=== PATIENT | female | born 1940 | race Caucasian/White ===

== ENCOUNTER 2017-02-16 21:31 | Inpatient (IN) ==
[2017-02-16 22:24] LABS: MANUAL DIFF NEEDED? NO
[2017-02-16 22:25] LABS: BASO% 0.3 % (0.0-0.8); EOS# 0.03 X1000 (0.0-0.7); EOS% 0.8 % (0.0-10.0); HEMATOCRIT 40.1 % (37.0-47.0); HEMOGLOBIN 14.3 g/dL (12.0-16.0); MCH 32.3 PG (27-31); MCHC 35.7 g/dL (33-37); MCV 90.5 FL (81-99); MONO# 0.57 X1000 (0.11-0.59); MONO% 15.7 % (1.7-9.3); MPV 9.4 FL (7.4-10.4); NEUT% 61.2 % (42.2-75.2); PLT 281 X1000 (130-400); RBC 4.43 XMIL (4.2-5.4)
[2017-02-16 22:48] LABS: URINE CULTURE NEEDED? NO; URINE MICRO REVIEW NEEDED? NO; URINE SOURCE CLEAN CATCH
[2017-02-16 22:53] LABS: UR EPITHELIAL CELLS <10 /HPF (<10); URINE BACTERIA NEGATIVE /HPF; URINE RBC <10 /HPF (<10); URINE WBC <10 /HPF (<10)
[2017-02-16 22:55] LABS: BILIRUBIN URINE NEGATIVE (NEGATIVE); BLOOD URINE NEGATIVE (NEGATIVE); COLOR YELLOW; GLUCOSE URINE NEGATIVE (NEGATIVE); LEUKOCYTES URINE NEGATIVE (NEGATIVE); NITRITE URINE NEGATIVE (NEGATIVE); PROTEIN URINE 30 mg/dL (NEGATIVE); SP GRAVITY URINE 1.022; TURBIDITY URINE CLEAR (CLEAR); UROBILINOGEN URINE NORMAL (NORMAL)
[2017-02-16 22:59] LABS: AGAP 13; ALBUMIN 4.7 g/dL (3.5-5.0); ALKALINE PHOSPHATASE 69 U/L (32-104); AMYLASE 39 U/L (20-200); BUN 7 mg/dL (8-22); CALCIUM 9.3 mg/dL (8.8-10.2); CHLORIDE 78 mmol/L (98-107); COSMO 238; GOT 16 U/L (10-30); GPT 9 U/L (10-36); LIPASE 15 U/L (13-60); SODIUM 118 mmol/L (136-145); TCO2 27 mmol/L (25-35); TOTAL BILIRUBIN 0.43 mg/dL (0.20-1.00); TOTAL PROTEIN 7.4 g/dL (6.3-8.3)
[2017-02-16] MEDS ORDERED: NS + KCL 20 MEQ 1,000 ML IV ONE (23:16)
[2017-02-17] MEDS ORDERED: ZOFRAN IV ONE (00:24)
[2017-02-17] MEDS ORDERED: APRESOLINE IV PRN (00:49)
[2017-02-17] MEDS ORDERED: TYLENOL PO PRN (00:49)
[2017-02-17] MEDS ORDERED: NS 1,000 ML IV ONE (00:49)
[2017-02-17] MEDS ORDERED: SODIUM CHLORIDE 0.9% INJ SCH (01:00)
[2017-02-17] MEDS: PROTONIX IV SCH (01:21)
[2017-02-17] MEDS: FLAGYL 500 MG/NS 500 MG/100 ML IVPB IV SCH ×4 (01:39→17:58)
[2017-02-17] MEDS: POTASSIUM CHLORIDE 20 MEQ/SWI 20 MEQ/100 ML IVPB IV SCH ×2 (02:28→04:47)
[2017-02-17] MEDS: CIPRO 400 MG/D5W 400 MG/200 ML IVPB IV SCH ×2 (02:35→14:43)
[2017-02-17] MEDS: ZOFRAN IV PRN ×3 (02:46→11:45)
[2017-02-17] MEDS: COMPAZINE IV PRN ×2 (04:07→15:26)
[2017-02-17 07:32] LABS: HEMATOCRIT 36.7 % (37.0-47.0); MCH 32.8 PG (27-31); MCHC 35.4 g/dL (33-37); MCV 92.7 FL (81-99); MPV 9.8 FL (7.4-10.4); RBC 3.96 XMIL (4.2-5.4)
[2017-02-17 07:34] LABS: AGAP 17; BUN 5 mg/dL (8-22); CALCIUM 8.1 mg/dL (8.8-10.2); CHLORIDE 83 mmol/L (98-107); COSMO 245; POTASSIUM 4.1 mmol/L (3.5-5.1); SODIUM 122 mmol/L (136-145); TCO2 22 mmol/L (25-35)
[2017-02-17] MEDS: ROCALTROL PO SCH (09:33)
[2017-02-17] MEDS: TESSALON PO PRN (14:43)
[2017-02-17] MEDS ORDERED: PROTONIX IV SCH (15:30)
[2017-02-17] MEDS ORDERED: COMPAZINE IV PRN (16:11)
--- NOTE | 2017-02-17 16:58 | Diag Imaging Result Doc PS360 ---
CT HEAD W/O CONTRAST - 02/17/2017 INDICATION: hyponatremia TECHNIQUE: A CT dose reduction protocol was used. COMPARISON: None FINDINGS: There is appearance of possible mass at the superior right frontal lobe. This area is not well delineated however. Otherwise, there is moderate diffuse atrophy and mild periventricular white matter chronic microvascular disease. No hemorrhage. The skull is intact. The sinuses are clear. IMPRESSION: 1. Possible mass in the right frontal lobe. Recommend further evaluation with a CT or MRI with intravenous contrast. 2. Other chronic changes as described above. Electronically signed by Mendoza Wilson 02/17/2017 4:55 PM
--- NOTE | 2017-02-17 17:08 | Diag Imaging Result Doc PS360 ---
CT ABD/PELVIS W/ IV CONT ONLY - 02/17/2017 INDICATION: gi bleed TECHNIQUE: A CT dose reduction protocol was used. COMPARISON: None FINDINGS: There is a large hiatal hernia. There is some fibrosis or infiltrate in the left lower lobe. Heart size is borderline. There are cholecystectomy clips. The liver, pancreas, adrenals, and kidneys are normal. There are a couple of small fat-containing ventral hernias. There is extremely severe diverticulosis all throughout the colon. No bowel obstruction or inflammation. Normal appendix. There is vascular disease of the aorta but no aneurysm or significant stenosis. There is mild enlargement of the endometrial canal which measures up to 11 x 8 mm. Urinary bladder and rectum are normal. There are moderate degenerative changes of the spine. No acute or suspicious bony lesion. IMPRESSION: 1. Large hiatal hernia. 2. Small fat-containing ventral hernias. 3. Severe diverticulosis coli. 4. Mild enlargement of the endometrial canal which may suggest hyperplasia. Follow-up pelvic ultrasound recommended. Electronically signed by Mendoza Wilson 02/17/2017 5:06 PM
[2017-02-17 17:43] LABS: UR CREAT RANDOM 16.8 mg/dL (11-20)
[2017-02-17] MEDS: NS 1,000 ML IV SCH (17:51)
[2017-02-17] MEDS: KEPPRA 500 MG in NS 100 ML IV SCH (22:05)
[2017-02-17] MEDS: SINGULAIR PO SCH (22:06)
[2017-02-18] MEDS: PROTONIX IV SCH (02:15)
[2017-02-18] MEDS: FLAGYL 500 MG/NS 500 MG/100 ML IVPB IV SCH ×3 (02:16→14:02)
[2017-02-18] MEDS: CIPRO 400 MG/D5W 400 MG/200 ML IVPB IV SCH ×2 (04:07→15:05)
--- NOTE | 2017-02-18 05:48 | EKG Report ---
Test Performed on : 02/17/2017 00:05:01 AM Test Reason : ABNORMAL LABS Blood Pressure : / mmHG Vent. Rate : 072 BPM Atrial Rate : 072 BPM P-R Int : 164 ms QRS Dur : 084 ms QT Int : 426 ms P-R-T Axes : 032 026 007 degrees QTc Int : 466 ms Normal sinus rhythm. Normal ECG When compared with ECG of 06-FEB-2009 18:03, No significant change was found Unconfirmed Result
[2017-02-18] MEDS: NS 1,000 ML IV SCH ×2 (06:15→13:11)
[2017-02-18 06:50] LABS: MANUAL DIFF NEEDED? NO
[2017-02-18 07:06] LABS: BASO% 0.2 % (0.0-0.8); EOS# 0.03 X1000 (0.0-0.7); EOS% 0.5 % (0.0-10.0); HEMATOCRIT 35.9 % (37.0-47.0); HEMOGLOBIN 12.5 g/dL (12.0-16.0); IMM GRAN# 0.02 X1000 (0.0-0.04); IMM GRAN% 0.3 % (0.0-0.5); LYMPH# 1.07 X1000 (1.2-3.4); LYMPH% 16.1 % (20.5-51.1); MCHC 34.8 g/dL (33-37); MCV 91.8 FL (81-99); MONO# 1.07 X1000 (0.11-0.59); MONO% 16.1 % (1.7-9.3); MPV 9.3 FL (7.4-10.4); NEUT% 66.8 % (42.2-75.2); PLT 250 X1000 (130-400); RBC 3.91 XMIL (4.2-5.4)
[2017-02-18 07:47] LABS: AGAP 13; BUN 4 mg/dL (8-22); CALCIUM 7.9 mg/dL (8.8-10.2); CHLORIDE 88 mmol/L (98-107); COSMO 249; POTASSIUM 3.3 mmol/L (3.5-5.1); SODIUM 125 mmol/L (136-145); TCO2 24 mmol/L (25-35)
[2017-02-18] MEDS ORDERED: KLOR-CON PO ONE (07:57)
--- NOTE | 2017-02-18 09:07 | Diag Imaging Result Doc PS360 ---
EXAM: MRI BRAIN W W/O CONTRAST HISTORY: BRAIN MASS TECHNIQUE: MRI brain with and without contrast. Axial, sagittal, and coronal images obtained in multiple sequences. These are followed the post contrasted axial and coronal images. COMPARISON: A CT from 02/17/2017 FINDINGS: No recent infarct. There are mild to moderate microvascular ischemic changes. There is no mass or midline shift. Specifically there is no mass in the right frontal lobe. No enhancing lesion on the post contrasted images. There is diffuse atrophy. Mild ventricular prominence. No epidural or subdural fluid collection. IMPRESSION: 1.No mass 2.Atrophy with chronic microvascular ischemic changes Electronically signed by Deep Cuellar 02/18/2017 9:05 AM
[2017-02-18] MEDS: KEPPRA 500 MG in NS 100 ML IV SCH ×3 (09:24→21:31)
[2017-02-18] MEDS ORDERED: DULCOLAX PO ONE ×2 (16:34→22:00)
[2017-02-18] MEDS ORDERED: MIRALAX PO ONE (16:34)
[2017-02-18] MEDS: ZOSYN 3.375 GM in NS 50 ML IV SCH ×2 (17:45→23:43)
--- NOTE | 2017-02-18 19:09 | Diag Imaging Result Doc PS360 ---
EXAM: CHEST-2 VIEWS HISTORY: Cough TECHNIQUE: Two views COMPARISON: 07/29/2015 FINDINGS: The lungs are well expanded. The heart is not enlarged. The vessels are not distended. There are no infiltrates. No pleural effusions. There is a moderate sized hiatal hernia. IMPRESSION: No pneumonia. Electronically signed by Deep Cuellar 02/18/2017 7:07 PM
[2017-02-18] MEDS: SINGULAIR PO SCH (21:30)
[2017-02-18] MEDS ORDERED: ZOSYN ONE (23:41)
[2017-02-19] MEDS: PROTONIX IV SCH (03:10)
[2017-02-19] MEDS: NS 1,000 ML IV SCH ×3 (03:10→17:29)
[2017-02-19] MEDS: ZOSYN 3.375 GM in NS 50 ML IV SCH ×3 (05:00→17:19)
[2017-02-19 06:24] LABS: BASO% 0.2 % (0.0-0.8); EOS% 3.6 % (0.0-10.0); HEMATOCRIT 37.1 % (37.0-47.0); HEMOGLOBIN 12.7 g/dL (12.0-16.0); IMM GRAN# 0.02 X1000 (0.0-0.04); IMM GRAN% 0.4 % (0.0-0.5); LYMPH% 25.3 % (20.5-51.1); MANUAL DIFF NEEDED? YES; MCH 31.8 PG (27-31); MCHC 34.2 g/dL (33-37); MONO% 14.5 % (1.7-9.3); MPV 9.6 FL (7.4-10.4); PLT 243 X1000 (130-400); RBC 3.99 XMIL (4.2-5.4)
[2017-02-19 06:34] LABS: AGAP 15; BUN 3 mg/dL (8-22); CALCIUM 8.3 mg/dL (8.8-10.2); CHLORIDE 93 mmol/L (98-107); COSMO 261; POTASSIUM 3.6 mmol/L (3.5-5.1); SODIUM 132 mmol/L (136-145); TCO2 24 mmol/L (25-35)
[2017-02-19 06:53] LABS: BANDS 4 % (0-1); LYMPHS 28 % (21-51); MONO 16 % (1-9)
[2017-02-19] MEDS: TESSALON PO PRN (08:39)
[2017-02-19] MEDS: KEPPRA 500 MG in NS 100 ML IV SCH ×2 (10:44→21:03)
[2017-02-19] MEDS: DUONEB (A & A) INH SCH ×4 (11:08→23:21)
[2017-02-19] MEDS: CLARITIN PO SCH (12:25)
[2017-02-19] MEDS: SINGULAIR PO SCH (20:54)
[2017-02-19] MEDS: HYZAAR 50/12.5 MG PO SCH (20:54)
[2017-02-20] MEDS: ZOSYN 3.375 GM in NS 50 ML IV SCH ×4 (00:06→17:07)
[2017-02-20] MEDS: PROTONIX IV SCH (01:00)
[2017-02-20] MEDS: DUONEB (A & A) INH SCH ×6 (03:37→22:35)
[2017-02-20 06:27] LABS: AGAP 11; BUN 3 mg/dL (8-22); CHLORIDE 93 mmol/L (98-107); COSMO 259; POTASSIUM 2.6 mmol/L (3.5-5.1); SODIUM 130 mmol/L (136-145); TCO2 26 mmol/L (25-35)
[2017-02-20] MEDS ORDERED: KLOR-CON PO ONE ×2 (07:55→15:48)
[2017-02-20] MEDS: ROCALTROL PO SCH (08:33)
[2017-02-20] MEDS: CLARITIN PO SCH (08:34)
[2017-02-20] MEDS: NS 1,000 ML IV SCH (10:22)
[2017-02-20] MEDS: KEPPRA 500 MG in NS 100 ML IV SCH ×2 (10:40→21:32)
[2017-02-20] MEDS ORDERED: MIRALAX PO ONE (16:00)
[2017-02-20] MEDS ORDERED: DULCOLAX PO ONE (17:00)
[2017-02-20] MEDS ORDERED: FLEET ENEMA PR ONE (21:17)
[2017-02-20] MEDS ORDERED: POTASSIUM CHLORIDE 20 MEQ/SWI 20 MEQ/100 ML IVPB IV ONE (21:17)
[2017-02-20] MEDS: HYZAAR 50/12.5 MG PO SCH (21:31)
[2017-02-20] MEDS: SINGULAIR PO SCH (21:31)
[2017-02-21 00:31] LABS: AGAP 18; BUN 2 mg/dL (8-22); CALCIUM 9.1 mg/dL (8.8-10.2); CHLORIDE 91 mmol/L (98-107); COSMO 256; POTASSIUM 3.8 mmol/L (3.5-5.1); SODIUM 129 mmol/L (136-145); TCO2 20 mmol/L (25-35)
[2017-02-21] MEDS: ZOSYN 3.375 GM in NS 50 ML IV SCH ×5 (01:08→23:05)
[2017-02-21] MEDS: DUONEB (A & A) INH SCH ×6 (03:29→22:32)
[2017-02-21] MEDS: PROTONIX IV SCH ×2 (03:38→22:55)
[2017-02-21] MEDS: NS 1,000 ML IV SCH ×4 (03:39→22:56)
[2017-02-21 06:36] LABS: MANUAL DIFF NEEDED? NO
[2017-02-21 06:43] LABS: BASO% 0.4 % (0.0-0.8); EOS# 0.19 X1000 (0.0-0.7); EOS% 2.7 % (0.0-10.0); HEMATOCRIT 37.9 % (37.0-47.0); HEMOGLOBIN 12.9 g/dL (12.0-16.0); IMM GRAN# 0.03 X1000 (0.0-0.04); IMM GRAN% 0.4 % (0.0-0.5); MCH 32.2 PG (27-31); MCV 94.5 FL (81-99); MONO# 0.86 X1000 (0.11-0.59); MONO% 12.3 % (1.7-9.3); MPV 9.3 FL (7.4-10.4); NEUT% 64.2 % (42.2-75.2); PLT 273 X1000 (130-400); RBC 4.01 XMIL (4.2-5.4)
[2017-02-21 07:16] LABS: AGAP 15; BUN 2 mg/dL (8-22); CALCIUM 8.9 mg/dL (8.8-10.2); CHLORIDE 97 mmol/L (98-107); COSMO 264; POTASSIUM 3.6 mmol/L (3.5-5.1); SODIUM 134 mmol/L (136-145); TCO2 22 mmol/L (25-35)
[2017-02-21] MEDS: CLARITIN PO SCH (08:16)
[2017-02-21] MEDS: KEPPRA 500 MG in NS 100 ML IV SCH ×2 (09:02→22:48)
[2017-02-21] MEDS ORDERED: DIPRIVAN 1% ONE (14:02)
[2017-02-21] MEDS ORDERED: XYLOCAINE-MPF 2% ONE (14:06)
[2017-02-21] MEDS ORDERED: FENTANYL ONE (14:06)
[2017-02-21] MEDS: SINGULAIR PO SCH (22:47)
[2017-02-21] MEDS: HYZAAR 50/12.5 MG PO SCH (22:47)
[2017-02-21] MEDS: SODIUM CHLORIDE 0.9% INJ SCH (22:55)
[2017-02-22] MEDS: DUONEB (A & A) INH SCH ×6 (03:42→23:18)
[2017-02-22] MEDS: ZOSYN 3.375 GM in NS 50 ML IV SCH ×3 (05:30→17:11)
[2017-02-22] MEDS: SODIUM CHLORIDE 0.9% INJ SCH ×2 (08:53→23:57)
[2017-02-22] MEDS: PROTONIX IV SCH ×2 (08:53→23:57)
[2017-02-22] MEDS: CLARITIN PO SCH (08:53)
[2017-02-22] MEDS: KEPPRA 500 MG in NS 100 ML IV SCH (09:20)
--- NOTE | 2017-02-22 12:44 | Diag Imaging Result Doc PS360 ---
EXAM: GI/SW/SM BOWEL HISTORY: poss gastropexy, poss SBO, n/v, abd pain, diarrhea TECHNIQUE: 17 films taken. Total dose is 2119 cGy square centimeter. Fluoroscopy time is one minute 58 seconds. COMPARISON: None. FINDINGS: Initial swallowing showed delayed relaxation at the gastroesophageal junction. No esophageal stricture or evidence of esophagitis. There apparently has been an intrathoracic fundoplication. There is quick emptying from the stomach into the duodenum. No definite gastric abnormality. There is normal passage of barium through the small bowel into the colon. No mucosal abnormality. No small bowel mass or stricture. Normal terminal ileum and appendix. IMPRESSION: Intrathoracic fundoplication with delayed emptying from the esophagus into the stomach with an appearance resembling achalasia. Electronically signed by Deep Cuellar 02/22/2017 12:41 PM
[2017-02-22] MEDS: NS 1,000 ML IV SCH (13:07)
[2017-02-22] MEDS: TESSALON PO PRN (23:57)
[2017-02-22] MEDS: HYZAAR 50/12.5 MG PO SCH (23:57)
[2017-02-22] MEDS: SINGULAIR PO SCH (23:59)
[2017-02-23] MEDS: KEPPRA 500 MG in NS 100 ML IV SCH (00:01)
[2017-02-23] MEDS: NS 1,000 ML IV SCH (01:34)
[2017-02-23] MEDS: ZOSYN 3.375 GM in NS 50 ML IV SCH ×2 (01:34→06:19)
[2017-02-23] MEDS: DUONEB (A & A) INH SCH ×3 (03:23→10:41)
[2017-02-23 06:52] LABS: AGAP 16; BUN 4 mg/dL (8-22); CALCIUM 8.8 mg/dL (8.8-10.2); CHLORIDE 92 mmol/L (98-107); COSMO 265; SODIUM 134 mmol/L (136-145); TCO2 26 mmol/L (25-35)
[2017-02-23] MEDS ORDERED: PRILOSEC PO SCH (07:00)
[2017-02-23 08:09] VITALS: BP 185/86
[2017-02-23] MEDS ORDERED: CIPRO PO SCH (09:00)
[2017-02-23] MEDS ORDERED: AUGMENTIN PO SCH (09:00)
[2017-02-23] MEDS: CLARITIN PO SCH (09:35)
[2017-02-24] MEDS ORDERED: MIRALAX PO SCH (09:00)
== END 2017-02-23 13:56 | disposition home or self-care (01) ==
LOC: ED 21:31 → SUATTDRO 02-17 00:19 → 3N 02-17 00:19
PROVIDERS: ATTEND Internal Medicine

== ENCOUNTER 2018-11-10 12:40 | Inpatient (IN) ==
--- NOTE | 2018-11-10 13:20 | HISTORY AND PHYSICAL ---
HISTORY: The patient is a 78-year-old patient of JUAN Garcia. She has had a history of nausea for a long time. She has had a large hiatal hernia. She has had 2 surgeries that I think had to do with the niacin fundoplication trying to correct her hiatal hernia. She has a history of hypertension. She has diverticulosis and essential hypertension. Other than that, really no significant problems. She was diagnosed with achalasia of the cardia. She is on Align, which is a probiotic 4 mg capsule, Prevacid 15 mg a day, Singulair 10 mg a day, vitamin D2 43030 units. I think she took that for 9 weeks, and now she is on vitamin D3 1000 units daily, calcitriol 0.25 mcg capsule twice a day, hydrochlorothiazide 12.5 mg every day, losartan 50 mg a day, omeprazole 20 mg daily. She has been diagnosed with hyperlipidemia. She has also had sleep disorder, vitamin D deficiency, osteoporosis, hyponatremia, and B12 deficiency. She has had some hyperplastic polyps removed. She presents with a history of not feeling good and some nausea that started 3 days ago, but started having some blood. She noticed a little bit of blood in her stool yesterday and then this morning she had quite a bit more. It was darker in color. She denies any abdominal pain, but still has nausea. She has not eaten or drank much because of the nausea. She looks a little dehydrated. Plan to admit her for lower GI bleed and intractable nausea. PAST SURGICAL HISTORY: 1. Cataracts. 2. Gallbladder. 3. Hernia repair x2, hiatal hernia repair. 4. Ankle repair. 5. Hysterectomy. SOCIAL HISTORY: . Retired. No history of alcohol or tobacco. FAMILY HISTORY: History of hypertension, heart disease, cerebral aneurysm in brother, congestive heart failure, and COPD. TESTING: She is up-to-date I believe on her mammogram, and she had several colonoscopies. Her most recent was on 03/03/2018. She has had cardiac screening which I think is GXT 09/02/2018. She was seeing Dr. Antoine, guidance counselor. She has seen Dr. Tillman in the past, and up to date on her vaccinations where she has had pneumococcal 23 and 13 as well. REVIEW OF SYSTEMS: General: She does not report significant weight gain or loss. No fever or chills. HEENT: No change in vision or hearing acuity. No complaints of adenopathy. Respiratory: No increased work of breathing or dyspnea reported. Cardiovascular: No chest pain or tachy palpitation. : She does not report any gross hematuria or dysuria. Musculoskeletal and Neurologic: Generalized weakness. No focal complaints. Endocrinologic/Hematologic: No significant history. PHYSICAL EXAMINATION: GENERAL: Well developed, well nourished, alert and oriented x3. HEENT: Pupils look equal. No distended neck veins. No cervical or supraclavicular adenopathy. CVP is less than 6 cm from right atrium. CHEST: Clear anterolateral and posterior. CARDIOVASCULAR: Regular rhythm and rate without murmur or S3. Carotid, radial and femoral pulses 2+ and symmetrical. ABDOMEN: Soft, nondistended, and nontender. No organomegaly appreciated. No pedal edema. ASSESSMENT AND PLAN: 1. Rectal bleeding. I suspect this may be a diverticular bleed. She has been scoped in February of last year, but she is also complaining of intractable nausea. 2. Intractable nausea. History of Sonya fundoplication, and hernia repair x2. I suspect she has got chronic gastritis. She has been diagnosed with achalasia of the cardia. She also has been treated in the past for H. Pylori gastritis. We will ask Dr. Renteria to see her. We will give her some fluids. 3. I think she is a little bit of volume contracted. We will give her some IV fluids. She has a normal left ventricle, so we will give her normal saline at 85 mL an hour. Give her Zofran IV for nausea. We will check her electrolytes, CBC, T4, TSH, B12, and folate. We will consult Dr. Renteria to help us. cc: Sergio Mcbride MD
[2018-11-10] MEDS ORDERED: NS 1,000 ML IV SCH (13:45)
[2018-11-10] MEDS ORDERED: VITAMIN D PO SCH (13:45)
[2018-11-10] MEDS ORDERED: TYLENOL PO PRN (13:45)
[2018-11-10] MEDS: CARAFATE LIQUID PO SCH ×2 (14:20→21:19)
[2018-11-10 14:32] LABS: BASO# 0.01 X1000 (0.0-0.2); BASO% 0.1 % (0.0-0.8); HEMATOCRIT 39.1 % (37.0-47.0); HEMOGLOBIN 13.5 g/dL (12.0-16.0); LYMPH# 0.91 X1000 (1.2-3.4); LYMPH% 10.6 % (20.5-51.1); MCH 31.8 PG (27-31); MCHC 34.5 g/dL (33-37); MONO# 0.39 X1000 (0.11-0.59); MONO% 4.6 % (1.7-9.3); MPV 9.3 FL (7.4-10.4); NEUT# 7.25 X1000 (1.4-6.5); NEUT% 84.7 % (42.2-75.2); PLT 339 X1000 (130-400); RBC 4.25 XMIL (4.2-5.4); WBC 8.56 X1000 (4.8-10.8)
[2018-11-10] MEDS: ZOFRAN IV PRN ×3 (14:36→22:34)
[2018-11-10 14:45] LABS: INR 0.88; PROTIME 12.6 Seconds (11.0-16.0)
[2018-11-10 14:46] LABS: PTT 27.8 Seconds (22.3-41.8)
[2018-11-10 15:16] LABS: ESTIMATED GFR > 60
[2018-11-10 15:17] LABS: AGAP 12; ALB/GLOB RATIO 1.4; ALBUMIN 4.2 g/dL (3.5-5.0); ALKALINE PHOSPHATASE 64 U/L (32-104); BUN 9 mg/dL (8-22); CALCIUM 9.3 mg/dL (8.8-10.2); CHLORIDE 86 mmol/L (98-107); COSMO 252; CREATININE 0.6 mg/dL (0.5-0.9); GLUCOSE 161 mg/dL (70-104); GOT 16 U/L (10-30); GPT 9 U/L (10-36); MAGNESIUM 1.8 mg/dL (1.5-2.7); POTASSIUM 3.4 mmol/L (3.5-5.1); SODIUM 124 mmol/L (136-145); TCO2 26 mmol/L (25-35); TOTAL BILIRUBIN 0.62 mg/dL (0.20-1.00); TOTAL PROTEIN 7.3 g/dL (6.3-8.3)
--- NOTE | 2018-11-10 19:24 | GASTROENTEROLOGY CONSULTATION ---
DATE: 11/10/2018 REASON FOR CONSULTATION: Nausea, vomiting, rectal bleeding. HISTORY OF PRESENT ILLNESS: This is a 78-year-old white female who is a former patient of Dr. Antoine. She was last seen by Dr. Antoine in December 2017. She had EGD and colonoscopy in February of 2018. EGD findings showed possible achalasia, gastritis, evidence of fundoplication. Colonoscopy showed polyps in the ascending colon, transverse colon, and sigmoid colon, along with diverticulosis and evidence of colitis versus diverticulitis. The patient reports onset of symptoms over the last 4 to 5 days. She has had progressive nausea and has not been able to eat. She has had some episodes of vomiting. She reports severe nausea. She denies eating out. No reported fever. No reported abdominal pain. No reported chest pain or shortness of breath. She does report a chronic cough for years. She has started noticing some blood in the stool last night. She noticed bright red blood that then turned to darker in color that was mixed with the stool. She reports some weakness and dizziness. She had approximately 4 to 5 bowel movements yesterday, and so far today she has had 1 bowel movement. She tried Carafate that was given to her in the hospital and about a hour and a half later she had vomiting. PAST MEDICAL HISTORY: 1. Osteoporosis. 2. Hyponatremia. 3. B12 deficiency. 4. Vitamin D deficiency. 5. History of sleep disorder. 6. History of hiatal hernia, status post Sonya fundoplication. 7. History of hypertension. 8. History of diverticulosis. 9. History of diverticulitis. SURGICAL HISTORY: 1. Cholecystectomy. 2. Hernia repair x2. 3. Ankle repair. 4. Hysterectomy. 5. Cataract surgery. 6. EGD and colonoscopy in February 2018. ALLERGIES: 1. Biaxin causing itching. 2. Phenergan causing itching. MEDICATIONS: 1. Align 4 mg daily. 2. Vitamin D 50,000 units every 7 days. 3. Hydrochlorothiazide 12.5 mg daily. 4. Prevacid 15 mg daily. 5. Losartan 50 mg daily. SOCIAL HISTORY: She is . She is retired. No reported tobacco or alcohol use. OBJECTIVE: Vital Signs: Temperature 98.2 degrees, pulse 75, respirations 18, blood pressure 153/73. General: Patient is awake, alert, in no acute distress. She is complaining of nausea. HEENT: Normocephalic, atraumatic. Pupils equal, round, reactive to light. Sclerae nonicteric. Respiratory: Lung sounds essentially clear. During evaluation, she does have a chronic clearing of her throat or cough. Cardiovascular: Regular rate and rhythm. Abdomen: Soft, nontender. Positive bowel sounds. Extremities: No lower extremity edema noted. Neurological: Cranial nerves 2 through 12 grossly intact. Patient is awake, alert, oriented to person, place, and time. DIAGNOSTIC RESULTS/LABORATORY: Hematology: WBC 8.56, hemoglobin 13.5, hematocrit 39.1, MCV 92.0, platelet 339,000. Coagulation: Prothrombin time 12.6, INR 0.88, PTT 27.8. Chemistry: Sodium 124, potassium 3.4, chloride 86, CO2 26, BUN 9, creatinine 0.6, glucose 161, calcium 9.3, magnesium 1.8, total bilirubin 0.62, AST 16, ALT 9, alkaline phosphatase 64, TSH 0.96. ASSESSMENT AND PLAN: 1. Nausea and vomiting. 2. Rectal bleeding. Hemoglobin and hematocrit are currently stable. 3. Electrolyte imbalance. Would recommend holding her intravenous fluids. Hold diuretics. She has had hyponatremia in the past. 4. Symptomatic treatment and supportive care. Stool studies have been ordered. Recommend holding diuretic and holding intravenous fluids. Will continue to follow. Further plans will be made according to her progress. Patient was also seen and examined by Dr. Renteria. Thank you for this consultation. Dictated by JUAN Helms for Abhi Renteria MD cc: JUAN Leal MD Allen J. Schmidt, MD
[2018-11-10] MEDS: PROTONIX PO SCH (21:19)
[2018-11-11 00:33] LABS: URINE SOURCE CLEAN CATCH
[2018-11-11 00:40] LABS: BILIRUBIN URINE NEGATIVE (NEGATIVE); BLOOD URINE LARGE (NEGATIVE); COLOR ORANGE; GLUCOSE URINE TRACE mg/dL (NEGATIVE); KETONE URINE 40 mg/dL (NEGATIVE); LEUKOCYTES URINE MODERATE (NEGATIVE); NITRITE URINE NEGATIVE (NEGATIVE); PH URINE 6.5; PROTEIN URINE 30 mg/dL (NEGATIVE); SP GRAVITY URINE 1.018; TURBIDITY URINE TURBID (CLEAR); UROBILINOGEN URINE NORMAL (NORMAL)
[2018-11-11 00:56] LABS: UR EPITHELIAL CELLS <10 /HPF (<10); URINE BACTERIA 1+ /HPF; URINE RBC TNTC /HPF (<10); URINE WBC 20-40 /HPF (<10)
[2018-11-11 00:59] LABS: URINE CASTS NONE SEEN; URINE CRYSTALS NONE SEEN; URINE SMALL ROUND CELLS TRANS PRESENT; URINE YEAST NONE SEEN
[2018-11-11] MEDS: CARAFATE LIQUID PO SCH ×4 (02:06→20:28)
[2018-11-11] MEDS: ZOFRAN IV PRN ×5 (03:12→20:38)
--- NOTE | 2018-11-11 07:19 | EKG Report ---
Test Performed on : 11/11/2018 07:05:41 AM Test Reason : chest pain Blood Pressure : / mmHG Vent. Rate : 066 BPM Atrial Rate : 066 BPM P-R Int : 172 ms QRS Dur : 086 ms QT Int : 426 ms P-R-T Axes : 021 032 022 degrees QTc Int : 446 ms Normal sinus rhythm. Normal ECG When compared with ECG of 17-FEB-2017 00:05, No significant change was found Confirmed by Tristen Morton MD ([id number]) on 11/11/2018 9:23:40 PM
--- NOTE | 2018-11-11 08:52 | Diag Imaging Result Doc PS360 ---
EXAM: ABDOMEN FLAT/UPRIGHT 11/11/2018 HISTORY: gi bleed TECHNIQUE: Flat and upright abdomen COMMENT: There is stool in the ascending colon and rectum. There is no evidence of gastric or small bowel dilatation. There is no evidence of organomegaly or mass. IMPRESSION: Nonspecific abdomen. Electronically signed by Ernesto Aroar 11/11/2018 8:50 AM
[2018-11-11] MEDS: COZAAR PO SCH (08:55)
[2018-11-11] MEDS: PROTONIX PO SCH ×2 (08:55→20:28)
[2018-11-11] MEDS: PATIENT'S OWN MED PO SCH (09:01)
[2018-11-11] MEDS ORDERED: SALINE LOCK IV FLUID XX ONE (09:55)
--- NOTE | 2018-11-11 13:23 | PROGRESS NOTE ---
DATE: 11/11/2018 SUBJECTIVE: Ms. Mancini is still having pretty good nausea. She says it is difficult for her to swallow. I encouraged her to try and drink liquids. OBJECTIVE: Vital Signs: She remains afebrile, temperature 98.8 degrees, pulse 78, respirations 24 and blood pressure 163/74. HEENT: Pupils are equal and round. Lungs: Clear in all lung bazan. Cardiovascular: Regular rhythm and rate without murmur or S3. Abdomen: Soft. Skin: Warm and dry. LABORATORY DATA: White count was 8560, hematocrit 39, platelet count 339,000. Sodium 124, potassium 3.4, chloride 86, BUN 9, creatinine 0.6. AST is 16, ALT is 9, albumin 4.2. Urinalysis showed too numerous to count red blood cells, 1+ bacteria. Abdominal x-ray, nonspecific abdomen. Stool in the ascending colon and rectum. No evidence of gastric or small bowel dilatation. No evidence of organomegaly or mass. ASSESSMENT AND PLAN: 1. Nausea, vomiting, and I suspect she has some gastritis. She has a history of Sonya fundoplication and revision surgery as well and so this nausea has been a long-term problem. She has been treated a couple years back for Helicobacter pylori. Suspect we will need to look in her stomach again with an EGD. 2. Rectal bleeding. I suspect most likely this is diverticular bleed. It does not look like she has lost a lot of blood. 3. Hyponatremia. She has not been drinking much and so this may be volume depletion, hyponatremia, but we did give her a little fluid yesterday and then held back on those. I will check sodium again in the morning. Her serum osmolality is 266, which is low. 4. Intractable nausea. Give her antiemetics. We did send stool off for ova and parasites, Clostridium difficile. I have her on Carafate as well as some Protonix 40 mg b.i.d. cc: Sergio Mcbride MD
[2018-11-11 15:27] LABS: HEMATOCRIT 37.3 % (37.0-47.0); HEMOGLOBIN 13.3 g/dL (12.0-16.0)
[2018-11-11 15:36] LABS: AGAP 12; BUN 9 mg/dL (8-22); CALCIUM 8.7 mg/dL (8.8-10.2); CHLORIDE 83 mmol/L (98-107); COSMO 239; CREATININE 0.6 mg/dL (0.5-0.9); ESTIMATED GFR > 60; GLUCOSE 105 mg/dL (70-104); POTASSIUM 3.4 mmol/L (3.5-5.1); TCO2 24 mmol/L (25-35)
[2018-11-11 15:38] LABS: SODIUM 119 mmol/L (136-145)
--- NOTE | 2018-11-11 19:37 | GASTROENTEROLOGY PROGRESS NOTE ---
DATE: 11/11/2018 SUBJECTIVE: Patient still report some nausea. She states she did not sleep well last night. OBJECTIVE: Vital Signs: Temperature 99.5 degrees, pulse 74, respirations 20, blood pressure 183/65. General: Patient is awake, alert, no acute distress. She is complaining of some nausea and difficulty sleeping. LABORATORY: CBC or BMP were not done today. I have ordered those. Awaiting results. ASSESSMENT AND PLAN: 1. Nausea and vomiting. Continue symptomatic treatment. 2. Rectal bleeding. Hemoglobin and hematocrit were stable. No evidence of active bleeding today. 3. Electrolyte imbalance, hyponatremia could be cause of her nausea. Her diuretics were held and her fluid was placed on hold. We will continue to follow. Stool studies have been ordered. Further plans to be made according to findings and her symptoms. 4. I have discussed this case with Dr. Renteria. Dictated by JUAN Helms for Abhi Renteria MD cc: JUAN Leal MD Allen J. Schmidt, MD
[2018-11-11 23:50] LABS: UR CREAT RANDOM 56.4 mg/dL (11-20)
[2018-11-12] MEDS: CARAFATE LIQUID PO SCH ×4 (02:19→22:47)
[2018-11-12 06:34] LABS: BASO# 0.01 X1000 (0.0-0.2); BASO% 0.1 % (0.0-0.8); EOS% 1.3 % (0.0-10.0); HEMATOCRIT 37.2 % (37.0-47.0); HEMOGLOBIN 12.9 g/dL (12.0-16.0); IMM GRAN# 0.02 X1000 (0.0-0.04); IMM GRAN% 0.3 % (0.0-0.5); LYMPH# 1.48 X1000 (1.2-3.4); LYMPH% 19.7 % (20.5-51.1); MCH 31.5 PG (27-31); MCHC 34.7 g/dL (33-37); MONO# 0.89 X1000 (0.11-0.59); MONO% 11.8 % (1.7-9.3); MPV 9.1 FL (7.4-10.4); NEUT# 5.03 X1000 (1.4-6.5); NEUT% 66.8 % (42.2-75.2); PLT 309 X1000 (130-400); RBC 4.09 XMIL (4.2-5.4); RDW 11.8 % (11.5-14.5); WBC 7.53 X1000 (4.8-10.8)
[2018-11-12 06:56] LABS: ESTIMATED GFR > 60
[2018-11-12 08:11] LABS: AGAP 9; BUN 9 mg/dL (8-22); CALCIUM 8.7 mg/dL (8.8-10.2); CHLORIDE 86 mmol/L (98-107); COSMO 248; CREATININE 0.7 mg/dL (0.5-0.9); GLUCOSE 98 mg/dL (70-104); POTASSIUM 3.7 mmol/L (3.5-5.1); SODIUM 124 mmol/L (136-145); TCO2 29 mmol/L (25-35)
[2018-11-12] MEDS: COZAAR PO SCH (09:16)
[2018-11-12] MEDS: PROTONIX PO SCH ×2 (09:16→22:47)
[2018-11-12] MEDS: PATIENT'S OWN MED PO SCH (09:17)
--- NOTE | 2018-11-12 10:24 | PROGRESS NOTE ---
DATE: 11/12/2018 SUBJECTIVE: Ms. Mancini feels better. She is able to keep liquids down, and had a little bit of food, so I think overall better. She was up about 6 hours last night. OBJECTIVE: Vital Signs: She remains afebrile, temperature 98.2 degrees, pulse 65, respirations 16, blood pressure 182/58. HEENT: Pupils are equal and round. Lungs: Clear in all lung bazan. Cardiovascular: Regular rhythm and rate without murmur or S3. Abdomen: Soft. Skin: Warm and dry. LABORATORY DATA: Reviewed lab from yesterday. Sodium has come up to 124, which is encouraging. It did drop down to 119, so I think that is because she is drinking some fluid and getting a little bit of intake. Her blood pressures appear well controlled. ASSESSMENT AND PLAN: 1. Lower gastrointestinal bleed. Suspect this is diverticulum. 2. Persistent nausea. I suspect gastritis, possible peptic ulcer disease. Gastroenterology is following. I have her on proton pump inhibitor and Carafate. 3. Hyponatremia. This is improved. I think she had hyponatremia in the face of nausea and hypovolemia. She was not drinking much fluid, so I think this is improving with volume. cc: Sergio Mcbride MD
--- NOTE | 2018-11-12 15:11 | GASTROENTEROLOGY PROGRESS NOTE ---
DATE: 11/12/2018 SUBJECTIVE: The patient states she does feel a little better today. She has been able to tolerate some liquids. She states she was able to sleep for about 6 hours last night, so overall she has had improvement. OBJECTIVE: Vital Signs: Temperature 98.6 degrees, pulse 74, respirations 20, blood pressure 186/90. General: The patient is awake and alert, in no acute distress. Her is at the bedside. LABORATORY DATA: Hematology: WBCs 7.53, hemoglobin 12.9, hematocrit 37.2, MCV 91.0, platelet 309,000. Chemistry: Sodium 124, potassium 3.7, chloride 86, CO2 of 29, BUN 9, creatinine 0.7, glucose 98. ASSESSMENT AND PLAN: 1. Nausea has improved. She has tolerated a liquid diet today. Continue proton pump inhibitor and Carafate. 2. Questionable gastrointestinal bleed. Seems to have resolved. 3. Hyponatremia. Continuing to follow. We will continue to follow. Her symptoms have improved some. There have been no further signs of active bleeding. Her hemoglobin and hematocrit are stable. Her nausea has improved. She continues to have hyponatremia. Will continue to follow. I have given her the option of advancing her diet, but she wanted to continue with a liquid diet for a little longer. Further plans will be made according to her progress, and I have discussed this case with Dr. Renteria. Dictated by JUAN Helms for Abhi Renteria MD cc: JUAN Leal MD Allen J. Schmidt, MD [facility]
[2018-11-12] MEDS: ZOFRAN IV PRN ×2 (17:45→22:47)
[2018-11-13] MEDS: CARAFATE LIQUID PO SCH ×4 (02:00→20:20)
[2018-11-13] MEDS: PROTONIX PO SCH ×2 (08:15→20:20)
[2018-11-13] MEDS: COZAAR PO SCH (08:15)
[2018-11-13] MEDS: PATIENT'S OWN MED PO SCH (08:27)
[2018-11-13] MEDS: ZOFRAN IV PRN ×3 (09:18→20:20)
--- NOTE | 2018-11-13 09:18 | PROGRESS NOTE ---
DATE: 11/13/2018 SUBJECTIVE: She is a little better. She is tolerating full liquids. She had a little setback eating some tomato soup yesterday, but I think we can try a soft diet. I will let her look through the menu, mashed potatoes and that kind of stuff. OBJECTIVE: Vital Signs: Temperature 98.2 degrees, pulse 69, respirations 20, blood pressure 174/54. Eyes: Pupils are equal and round. Lungs: Lungs are clear in all lung bazan. Cardiovascular exam: Regular rhythm and rate without murmur or S3. Abdomen: Soft. Skin: Warm and dry. Of note, her sodium came back from 119 to 124 today. ASSESSMENT AND PLAN: 1. Nausea, improved. Continue proton pump inhibitor and Carafate. We will try a soft gastrointestinal diet. 2. Questionable gastrointestinal bleed seems to have resolved. This was bright red blood. Suspect this may have been diverticular bleed. 3. Hyponatremia. Seems to be improving. We will get a nutrition consultation at her request to help her with the menu and put her on a soft gastrointestinal diet and see how we do. There were no enteric pathogens found in the stool. cc: Sergio Mcbride MD
[2018-11-14] MEDS: ZOFRAN IV PRN ×4 (02:34→23:15)
[2018-11-14] MEDS: CARAFATE LIQUID PO SCH ×4 (02:34→20:22)
[2018-11-14] MEDS: PROTONIX PO SCH ×2 (10:47→20:22)
[2018-11-14] MEDS: COZAAR PO SCH (10:47)
[2018-11-14] MEDS: PATIENT'S OWN MED PO SCH (10:49)
--- NOTE | 2018-11-14 11:23 | PROGRESS NOTE ---
DATE: 11/14/2018 SUBJECTIVE: She is still having some nausea, but it is better. She is able to get some food down including applesauce and mashed potatoes, and so encouraged by that. She has not had a bowel movement in a couple of days, but her stools were loose before she came in the hospital. She has not known any more blood in her stool. OBJECTIVE: Temperature 97.7 degrees, pulse 60, respirations 20, blood pressure 139/59. Pupils are equal and round. Lungs are clear in all lung bazan. Cardiovascular exam regular rhythm and rate without murmur or S3. Abdomen is soft. Skin is warm and dry. ASSESSMENT AND PLAN: 1. I suspect she has chronic gastritis. She is on Carafate and high-dose proton pump inhibitors. She seems to be making some improvement. Hopefully, we can let her go home tomorrow. I do not think there is an indication right now for repeat esophagogastroduodenoscopy. 2. Lower gastrointestinal bleed. This may have been hemorrhoids. This may have been a diverticular bleed. She has not had any further issues. 3. She has not had a bowel movement yet, but does not appear to be constipated. 4. Review of her orders, I do not see any change. She is on Carafate 1 g q.6 and she is on Protonix 40 mg p.o. b.i.d. We have her on a GI soft diet. 5. Review of her lab: Sodium has come up to 124. I will check that again in the morning. Hyponatremia was an issue though on presentation. Note that her hematocrit and hemoglobin are stable. cc: Sergio Mcbride MD
[2018-11-14] MEDS: ROCEPHIN 1 GM in NS 50 ML IV SCH (13:06)
[2018-11-14] MEDS: MIRALAX PO SCH ×2 (13:06→20:22)
--- NOTE | 2018-11-14 14:04 | GASTROENTEROLOGY PROGRESS NOTE ---
DATE: 11/14/2018 SUBJECTIVE: Patient is awake, alert, no acute distress. Her was at the bedside. She is still having some nausea. She is trying to avoid certain foods. She is able to eat some of her diet. She has not had a bowel movement. No further signs of rectal bleeding. OBJECTIVE: Vital Signs: Temperature 97.7 degrees, pulse 68, respirations 20, blood pressure 139/59. General: Patient is awake, alert, no acute distress. LABORATORY: Hematology: WBC 7.53, hemoglobin 12.9, hematocrit 37.2, 91.0, platelet 309,000. Chemistry: Sodium 124, potassium 3.7, chloride 86, CO2 29, BUN 9, creatinine 0.7, glucose 98. ASSESSMENT AND PLAN: 1. Nausea has improved. 2. Rectal bleeding with no further bleeding reported but patient has not had a bowel movement. We may need to start her on a mild laxative like MiraLAX. 3. Hyponatremia. Continue to follow. 4. Urinary tract infection. She had microbiology that showed Enterobacter aerogenes. Sensitivity report was reviewed. I do not see where she has been started on antibiotics. I will discuss case with Dr. Renteria. Further plans to be made as needed. Will continue to follow during her hospital course. Dictated by JUAN Helms for Abhi Renteria MD cc: JUAN Leal MD Allen J. Schmidt, MD [facility]
[2018-11-15] MEDS: CARAFATE LIQUID PO SCH ×2 (03:06→07:02)
[2018-11-15] MEDS: COZAAR PO SCH (09:42)
[2018-11-15] MEDS: PROTONIX PO SCH (09:42)
[2018-11-15] MEDS: MIRALAX PO SCH (09:42)
[2018-11-15] MEDS: PATIENT'S OWN MED PO SCH (09:43)
[2018-11-15] MEDS ORDERED: MILK OF MAGNESIA PO ONE (10:14)
--- NOTE | 2018-11-15 10:15 | DISCHARGE SUMMARY ---
ADMISSION DATE: 11/10/2018 DISCHARGE DATE: 11/15/2018 This is a patient followed by JUAN Garcia. I admitted her on 11/10/2018. A 78-year-old patient of JUAN Garcia. She has a history of nausea. She has had for long time a large hiatal hernia. She has had 2 surgeries I think a Sonya fundoplication and a revision surgery for this by her report, history of hypertension, history of diverticulosis, essential hypertension. She was diagnosed with achalasia of the cardia, and I think she was treated in the past for H. pylori gastritis. She takes a Probiotic. She is on Prevacid 50 mg a day, Singulair 10 mg a day, vitamin D2 50,000 units I think a week, and then she was converted over to vitamin D3 at 1000 units daily, Calcitrol 0.25 mg capsule twice a day, hydrochlorothiazide 12.5 daily, losartan 50 mg a day, omeprazole 20 mg a day. In addition, she has a past medical history of hyperlipidemia, insomnia, sleep disorder. She is diagnosed with osteoporosis, vitamin B12 deficiency. In the past, she has had some hyponatremia, also had some hyperplastic polyps removed per colonoscopy. Basically not eating, poor appetite, more nausea in the last 3-4 days. PAST SURGICAL HISTORY: 1. Cataracts. 2. Cholecystectomy. 3. Hernia repair x2. 4. Ankle repair. 5. Hysterectomy. HOSPITAL COURSE: 1. She was admitted because she complained of a little bit of blood in the rectum, whether that was a little diverticular blood or whether it was from hemorrhoids. She had no further bleeding. No sign of significant drop in hemoglobin or hematocrit. 2. Intractable nausea, suspect is a combination of her Sonya fundoplication, hernia repair, and also chronic gastritis. I put her on a high-dose proton pump inhibitor and Carafate. Dr. Renteria evaluated her. She has been treated in the past for H. pylori and apparently has had breath urea test, which confirmed it was eradicated. 3. She was a little volume contracted. I gave her some fluids. She was complaining of loose stools. She showed steady but definite improvement and her lab work did not show any significant drop in hemoglobin or hematocrit. Hematocrit is 37, hemoglobin 12.9. She did have significant hyponatremia and it dropped down to 119, came back up to 124, potassium 3.7, chloride 86, BUN 9, creatinine 0.7. DISCHARGE MEDICATIONS: She will stay on her Align, which is a probiotic, and she will take that once a day, Tylenol as needed. We did treat her from urinary sediment. She did not have any symptomatic urinary tract infection. She is on vitamin D 50,000 q. week, Cozaar 50 mg daily. Protonix, we will give her 40 mg p.o. b.i.d. Carafate 1 g q.6 hours, we will do that for 4 weeks. We gave her MiraLAX but she may not need that, but I will give her MiraLAX 17 g p.o. once a day. They have Dulcolax tablets at home, she can use those as needed, and we will check a sodium today before she leaves and follow up with Lisa Jean. cc: Sergio Mcbride MD
[2018-11-15 11:36] LABS: ESTIMATED GFR > 60
[2018-11-15 11:38] LABS: AGAP 13; BUN 7 mg/dL (8-22); CALCIUM 9.6 mg/dL (8.8-10.2); CHLORIDE 87 mmol/L (98-107); COSMO 252; CREATININE 0.8 mg/dL (0.5-0.9); GLUCOSE 106 mg/dL (70-104); POTASSIUM 3.8 mmol/L (3.5-5.1); SODIUM 126 mmol/L (136-145); TCO2 26 mmol/L (25-35)
[2018-11-15 12:18] VITALS: BP 175/75
[2018-11-15] MEDS: ROCEPHIN 1 GM in NS 50 ML IV SCH (12:47)
--- NOTE | 2018-11-15 13:54 | GASTROENTEROLOGY PROGRESS NOTE ---
DATE: 11/15/2018 SUBJECTIVE: The patient is resting comfortably, enjoying her breakfast. She reports improvement of her symptoms. She tells me her nausea has improved to the point that she can eat now, although she cannot finish her tray. She denies any dysphagia or odynophagia. Other concern was slightly dry cough that she has, she continues to have that. She was found to have a urinary tract infection, growing Enterobacter sensitive to Levaquin. She was started on Levaquin yesterday. OBJECTIVE: Vital signs: Temperature 98.3 degrees, pulse 61, breathing 20, blood pressure 141/62. General: Physical exam is otherwise unremarkable. IMPRESSION: 1. Nausea. Better. Continue current treatment. No new suggestions. 2. Rectal bleeding. Since admission, she has not had any. She has not had any bright red blood per rectum. She has not had any bowel movement. MiraLAX apparently is not working. I would add a dose of milk of magnesia today. 3. Rest of medical treatment as per team. cc: MD Sergio Alaniz MD
== END 2018-11-15 13:04 | disposition home or self-care (01) | DRG 393 ==
LOC: DIRADM 12:40 → 4N 13:11
PROVIDERS: ADMIT Emergency Medicine; ATTEND Emergency Medicine
CPT/HCPCS: 74019; 74020; 80048; 80053; 81001; 82570; 83735; 83930; 83935; 84300; 84443; 85014; 85018; 85025; 85610; 85730; 87045; 87046; 87077; 87088; 87186; 93005; 93010; A9270; J0696; J2405; J7030